=== PATIENT | female | born 1955 | race Caucasian/White ===

== ENCOUNTER 2018-08-31 16:18 | Emergency (ER) | payer BC ==
[2018-08-31 17:28] VITALS: BP 130/83
== END 2018-08-31 19:46 | disposition left against medical advice (07) ==
LOC: UCCORT 16:18
DX: Z53.21 Procedure and treatment not carried out due to patient leaving prior to being seen by health care provider (principal)

== ENCOUNTER 2018-09-23 09:01 | Emergency (ER) | payer BC ==
[2018-09-23 09:13] VITALS: BP 115/89
--- NOTE | 2018-09-23 09:42 | UC ---
Hand/Wrist HPI - HPI Summary HPI Summary: Pt presents with c/o left wrist pain, swelling and redness after falling from porch ~ 2 feet off the ground from standing position. Pt reports that she fell with both arms extended and also had wooden sliver in anterior wrist that she removd at home two days ago. - History Of Current Complaint Chief Complaint: UCUpperExtremity Stated Complaint: LT HAND INJURY Time Seen by Provider: 09/23/18 09:09 Hx Obtained From: Patient ?: No Onset/Duration: Sudden Onset, Lasting Days, Still Present, Worse Since Severity Initially: Mild Severity Currently: Moderate Pain Intensity: 2 Character Of Pain: Dull Aggravating Factor(s): Movement Alleviating Factor(s): Rest Associated Signs And Symptoms: Positive: Swelling, Redness Related History: Dominant Hand Right - Risk Factors Compartment Syndrome Risk Factors: Pain - Allergies/Home Medications Allergies/Adverse Reactions: Allergies Allergy/AdvReac Type Severity Reaction Status Date / Time aspirin Allergy Altered Verified 09/23/18 09:13 Mental Status bee pollen Allergy Swelling Verified 09/23/18 09:13 sleeping pills Allergy Agitation Uncoded 09/23/18 09:13 Home Medications: Home Medications diPHENhydraMINE PO* [Benadryl PO 25 MG TAB*] 25 mg PO Q6H PRN 09/23/18 [History Confirmed 09/23/18] PMH/Surg Hx/FS Hx/Imm Hx Previously Healthy: Yes Respiratory History: COPD - Surgical History Surgical History: Yes Surgery Procedure, Year, and Place: tubal. hysterectomy. choley - Family History Known Family History: Positive: Cardiac Disease - Social History Occupation: Retired Lives: With Family Alcohol Use: None Substance Use Type: None Smoking Status (MU): Heavy Every Day Tobacco Smoker Type: Cigarettes Amount Used/How Often: 1 ppd Have You Smoked in the Last Year: Yes Household Exposure Type: Cigarettes - Immunization History Vaccination Up to Date: No Review of Systems All Other Systems Reviewed And Are Negative: Yes Constitutional: Positive: Negative Skin: Positive: Other - erythema Eyes: Positive: Negative ENT: Positive: Negative Respiratory: Positive: Negative Cardiovascular: Positive: Negative Gastrointestinal: Positive: Negative Genitourinary: Positive: Negative Motor: Positive: Negative Neurovascular: Positive: Negative Musculoskeletal: Positive: Arthralgia - left wrist, Myalgia - left wrist Neurological: Positive: Negative Psychological: Positive: Negative Is Patient Immunocompromised?: No Physical Exam Triage Information Reviewed: Yes Appearance: Well-Appearing Vital Signs: Initial Vital Signs Temp 99.0 F 09/23/18 09:09 Pulse 76 09/23/18 09:09 Resp 16 09/23/18 09:09 BP 115/89 09/23/18 09:09 Pulse Ox 99 09/23/18 09:09 Vital Signs Reviewed: Yes Eye Exam: Normal ENT Exam: Normal Dental Exam: Normal Neck exam: Normal Respiratory Exam: Normal Respiratory: Positive: No respiratory distress Musculoskeletal: Positive: Edema @ - left wrist, erythema left wrist anterior, that extende beyond aniecubital space. The entire left wrist is erythematous and the erythema is a thin, red streak to left elbow. Pt was marked with surgical marker and instructed to monitor for any worsening of infefction, including but not limited to increase of rednes, pain, swelling, fever or chills. Neurological Exam: Normal Psychological Exam: Normal Skin Exam: Other - erythema, left wrist that extends to left elbow Diagnostics - Radiology No standard instances Radiology Interpretation Completed By: Radiologist - IMPRESSION: Degenerative changes of the left wrist without radiographically apparent acute fracture or dislocation. If the patient's symptoms persist, follow-up imaging is recommended. Hand/Wrist Course/Dx - Differential Dx/Diagnosis Differential Diagnosis/HQI/PQRI: Cellulitis, Foreign Body, Fracture Provider Diagnosis: Cellulitis of forearm, left, Contusion of left wrist Discharge - Sign-Out/Discharge Documenting (check all that apply): Patient Departure All imaging exams completed and their final reports reviewed: Yes - Discharge Plan Condition: Stable Disposition: HOME Prescriptions: Cephalexin CAP* [Keflex 500 CAP*] 500 mg PO Q8H #30 cap Patient Education Materials: Cellulitis (ED) Referrals: Yokasta Ford PA [Primary Care Provider] - If Needed Additional Instructions: Please follow up with your PCP or return to clinic as needed. Please monitor for any worsening symptoms of infections that include but are not limited to worsening of infection, fever, chills, purulent discharge, or worsening of redness. - Billing Disposition and Condition Condition: STABLE Disposition: Home - Attestation Statements Provider Attestation: I was available for consult. This patient was seen by the GILBERTO. The patient was not presented to, seen by, or examined by me. EK
[2018-09-23] MEDS ORDERED: Tetan/Diph/Pertus SYR(Tdap)* 0.5 ML SYR(BOOSTRIX) use SYR IM ONE (09:54)
[2018-09-23] MEDS ORDERED: cefTRIAXone VIAL(*) 250 MG VIAL IM ONE (09:54)
[2018-09-23] MEDS ORDERED: Lidocaine 1% MPF* 2 ML VIAL ONE (09:59)
== END 2018-09-23 10:32 | disposition home or self-care (01) ==
LOC: UCCORT 09:01
DX: S60.212A Contusion of left wrist, initial encounter (principal); L03.114 Cellulitis of left upper limb; J44.9 Chronic obstructive pulmonary disease, unspecified; F17.210 Nicotine dependence, cigarettes, uncomplicated; Z91.030 Bee allergy status; Z88.8 Allergy status to other drugs, medicaments and biological substances; W17.89XA Other fall from one level to another, initial encounter; Y92.9 Unspecified place or not applicable
CPT/HCPCS: 90471; 90715; 96372; 99212; G0463; J0696

== ENCOUNTER 2018-11-08 16:17 | Emergency (ER) | payer BC ==
[2018-11-08 16:40] VITALS: BP 106/75
--- NOTE | 2018-11-08 16:52 | UC ---
Throat Pain/Nasal [place] HPI - HPI Summary HPI Summary: 63-year-old woman comes in with a chief complaint of one week of sinusitis symptoms. She's got green rhinorrhea. She has pain in the frontal sinuses that 's worse when she leans forward. Also having some cough but no shortness of breath. She's tried [id number] medications that are not helping with the symptoms. - History of Current Complaint Chief Complaint: UCGeneralIllness Stated Complaint: SINUS Time Seen by Provider: 11/08/18 16:30 Pain Intensity: 0 - Allergies/Home Medications Allergies/Adverse Reactions: Allergies Allergy/AdvReac Type Severity Reaction Status Date / Time aspirin Allergy Altered Verified 11/08/18 16:40 Mental Status bee pollen Allergy Swelling Verified 11/08/18 16:40 sleeping pills Allergy Agitation Uncoded 11/08/18 16:40 PMH/Surg Hx/FS Hx/Imm Hx Previously Healthy: Yes - Surgical History Surgical History: Yes Surgery Procedure, Year, and Place: tubal. hysterectomy. choley - Family History Known Family History: Positive: Cardiac Disease - Social History Alcohol Use: None Substance Use Type: None Smoking Status (MU): Heavy Every Day Tobacco Smoker Type: Cigarettes Amount Used/How Often: 1.5 ppd Length of Time of Smoking/Using Tobacco: 31 years Have You Smoked in the Last Year: Yes Household Exposure Type: Cigarettes - Immunization History Vaccination Up to Date: No Review of Systems All Other Systems Reviewed And Are Negative: Yes Constitutional: Positive: Negative Skin: Positive: Negative Eyes: Positive: Negative ENT: Positive: Sore Throat, Nasal Discharge, Sinus Congestion, Sinus Pain/ Tenderness Respiratory: Positive: Cough Cardiovascular: Positive: Negative Gastrointestinal: Positive: Negative Motor: Positive: Negative Neurovascular: Positive: Negative Musculoskeletal: Positive: Negative Neurological: Positive: Negative Psychological: Positive: Negative Is Patient Immunocompromised?: No Physical Exam Triage Information Reviewed: Yes Appearance: No Pain Distress, Well-Nourished, Ill-Appearing - MILD Vital Signs: Initial Vital Signs Temp 99.1 F 11/08/18 16:30 Pulse 84 11/08/18 16:30 Resp 18 11/08/18 16:30 BP 106/75 11/08/18 16:30 Pulse Ox 97 11/08/18 16:30 Vital Signs Reviewed: Yes Eye Exam: Normal Eyes: Positive: Conjunctiva Clear ENT: Positive: Pharyngeal erythema, Nasal congestion, Nasal drainage, TMs normal Neck: Positive: Supple Respiratory: Positive: Lungs clear, Normal breath sounds, No respiratory distress Cardiovascular: Positive: RRR Musculoskeletal Exam: Normal Musculoskeletal: Positive: Strength Intact, ROM Intact Neurological Exam: Normal Neurological: Positive: Alert, Muscle Tone Normal Psychological Exam: Normal Psychological: Positive: Normal Response To Family, Age Appropriate Behavior Skin Exam: Normal Throat Pain/Nasal Course/Dx - Course Course Of Treatment: DISCUSSED VIRAL VERSES BACTERIAL INFECTION AND THE ROLE OF ANTIBIOTICS. THE PATIENT PREFERS TO BE ON ANTIBIOTICS AT THIS TIME. - Differential Dx/Diagnosis Provider Diagnosis: Sinusitis Discharge - Sign-Out/Discharge Documenting (check all that apply): Patient Departure All imaging exams completed and their final reports reviewed: No Studies - Discharge Plan Condition: Stable Disposition: HOME Prescriptions: Amoxicillin/Clavulanate TAB* [Augmentin TAB 875*] 875 mg PO BID #20 tab Patient Education Materials: Sinusitis (ED) Referrals: Yokasta Ford PA [Primary Care Provider] - Additional Instructions: FOLLOW UP WITH YOUR DOCTOR IF NOT COMPLETELY IMPROVED. GET RECHECKED SOONER IF YOUR CONDITION WORSENS OR ANY QUESTIONS OR CONCERNS. - Billing Disposition and Condition Condition: STABLE Disposition: Home
== END 2018-11-08 16:57 | disposition home or self-care (01) ==
LOC: UCCORT 16:17
DX: J32.9 Chronic sinusitis, unspecified (principal); F17.210 Nicotine dependence, cigarettes, uncomplicated; Z88.8 Allergy status to other drugs, medicaments and biological substances; Z91.030 Bee allergy status
CPT/HCPCS: 99211; G0463